=== PATIENT | male | born 1935 | race Caucasian/White ===

== ENCOUNTER 2017-08-13 22:08 | Inpatient (IN) | payer OTHER, BC ==
[~2017-08-13] VITALS: Ht 165.1 cm; Wt 76.1 kg
[~2017-08-13 22:08] MED LIST: ADULT ASPIRIN R81 MG PO; AZOR 5/20 MG1 TABLET PO; CELECOXIB200 MG PO; ENDOCET 5-3251 EACH PO; ERGOCALCIF50000 UNIT PO; LO-DOSE ASPIRIN81 M2 PO; LOVENOX40 MG/0.4 SC; METAMUCIL FIBE3.4 GM PO; OXYCONTIN10 MG PO
[2017-08-14] MEDS ORDERED: ATIVAN0.5 MG PO (07:12)
[2017-08-14 07:13] VITALS: BP 162/76
[2017-08-14 12:06] LABS: HEMATOCRIT 35.3 % (38.0-50.0); HEMOGLOBIN 11.6 G/DL (12.5-16.6); MCH 29.2 PG (29.0-34.0); MCHC 32.9 G/DL (30.0-36.0); MCV 88.9 FL (86-99); PLATELET COUNT 235 K/uL (156-360); RBC DIS.WIDTH-CV 12.6 % (11.8-14.6); RBC DIS.WIDTH-SD 41.5 % (39-53); RED BLOOD COUNT 3.97 M/uL (4.00-5.50); WHITE BLOOD COUNT 6.3 K/uL (4.1-10.2)
[2017-08-14 12:54] VITALS: BP 132/93
[2017-08-14 16:20] VITALS: BP 138/84
[2017-08-14 19:56] VITALS: BP 135/67
[2017-08-15 01:24] VITALS: BP 140/68
[2017-08-15 03:56] VITALS: BP 140/67
[2017-08-15 07:54] LABS: HEMATOCRIT 31.3 % (38.0-50.0); HEMOGLOBIN 10.6 G/DL (12.5-16.6); MCV 88.7 FL (86-99)
[2017-08-15 08:27] VITALS: BP 136/63
[2017-08-15] MEDS ORDERED: HYDROCODON-ACE1 EAC7 PO (09:22)
[2017-08-15] MEDS ORDERED: LOVENOX40 MG/0.4 SC (09:22)
[2017-08-15 09:56] LABS: CHLORIDE 103 MEQ/L (99-109); CREATININE 1.1 MG/DL (0.6-1.3); GFR ESTIMATE (CALCULATED) > 59 mL/min/ (58.99-99999); GLUCOSE 124 mg/dL (70-99); POTASSIUM 4.1 MEQ/L (3.7-5.4); SODIUM 135 MEQ/L (136-147); UREA NITROGEN (BUN) 16 mg/dL (9-23)
[2017-08-15 17:04] VITALS: BP 162/81
[2017-08-16 00:06] VITALS: BP 172/87
[2017-08-16 06:25] LABS: HEMATOCRIT 32.3 % (38.0-50.0); HEMOGLOBIN 11.1 G/DL (12.5-16.6)
== END 2017-08-16 14:40 | disposition home or self-care (01) | DRG 470 ==
LOC: ENRESERV 22:08 → 2SOUTH 08-14 06:49 → ENRESERV 08-14 11:20 → 3EAST 08-14 12:30 → 2SOUTH 08-14 14:09 → 3EAST 08-16 14:40
PROVIDERS: Orthopaedic Surgery
PROC: 0SRD0J9 Replacement of Left Knee Joint with Synthetic Substitute, Cemented, Open Approach (ICD-10-PCS; principal; 2017-08-14)
DX: M17.12 Unilateral primary osteoarthritis, left knee (principal); J44.9 Chronic obstructive pulmonary disease, unspecified; I10 Essential (primary) hypertension; Z96.651 Presence of right artificial knee joint; Z79.82 Long term (current) use of aspirin; K57.30 Diverticulosis of large intestine without perforation or abscess without bleeding; Z90.49 Acquired absence of other specified parts of digestive tract; Z87.891 Personal history of nicotine dependence
CPT/HCPCS: 73560; 80048; 80048 91; 85014; 85018; 85027; 97530 GO; C1713; J0131; J0690; J1100; J1650; J2250; J2405; J2795; J7050